=== PATIENT | female | born 1995 | race Caucasian/White ===

== ENCOUNTER 2020-09-27 13:58 | Emergency (ER) | payer BC ==
[~2020-09-27] VITALS: Ht 162 cm; Wt 112.0 kg
[2020-09-27] MEDS ORDERED: IBUPROFEN 800 MG (MOTRIN) TAB PO ONE (14:15)
--- NOTE | 2020-09-27 14:15 | ED General ---
General Chief Complaint: General Problems/Pain Stated Complaint: CHEST PAIN WITH INHALING Nursing Triage Note: PT ABM TO ROOM6 PT CO OF PINCHED NERVE IN NECK, PT STATES FEELS LIKE I HAVE A STICKY LUNG. RATES 11/06 Nursing Sepsis Screen: No Definite Risk Source of Information: Patient Exam Limitations: No Limitations History of Present Illness Date Seen by Provider: September 27, 2020 Time Seen by Provider: 14:13 Initial Comments To ER with reports of sharp pain in the left side of her chest when taking a deep breath. Prior to this she had some pressure in her ears. This began yesterday. She feels like she has a pinched nerve in her neck that radiates down the left arm as well. She read on the Internet that sometimes you have to put a tube in someone's just for situations like this. She decided to come to the emergency room. Timing/Duration: 1-2 Days Severity: Moderate Associated Systoms: No Cough Allergies and Home Medications Allergies Coded Allergies: No Known Drug Allergies (Unverified , 09/27/20) Patient Home Medication List Home Medication List Reviewed: Yes Review of Systems Review of Systems Constitutional: see HPI; No chills, No fever EENTM: see HPI Respiratory: see HPI, cough, short of breath Cardiovascular: no symptoms reported Genitourinary: no symptoms reported Musculoskeletal: no symptoms reported Skin: no symptoms reported Psychiatric/Neurological: No Symptoms Reported Hematologic/Lymphatic: No Symptoms Reported Immunological/Allergic: no symptoms reported Past [place]qgvsx-Wwrdyf Hx Patient Social History Alcohol Use: Occasionally Uses Smoking Status: Former Smoker Recent Infectious Disease Expo: No Recent Hopitalizations: No Seasonal Allergies Seasonal Allergies: No Past Medical History Surgeries: No Respiratory: No Cardiac: No Neurological: No Genitourinary: No Gastrointestinal: No Musculoskeletal: No Endocrine: No HEENT: No Cancer: No Psychosocial: No Integumentary: No Physical Exam Vital Signs Vital Signs - First Documented 09/27/20 14:00 Temp 36.1 Pulse 104 Resp 20 B/P (MAP) 153/83 (106) Pulse Ox 100 Capillary Refill : Less Than 3 Seconds Height, Weight, BMI Height: '" Weight: lbs. oz. kg; 42.00 BMI Method: General Appearance: No Apparent Distress, WD/WN Eyes: Bilateral Eye Normal Inspection, Bilateral Eye PERRL, Bilateral Eye EOMI HEENT: PERRL/EOMI, TMs Normal Neck: Full Range of Motion, Normal Inspection Respiratory: Lungs Clear, Normal Breath Sounds, No Accessory Muscle Use, No Respiratory Distress Cardiovascular: Regular Rate, Rhythm, Normal Peripheral Pulses Gastrointestinal: Normal Bowel Sounds, Non Tender, Soft Extremity: Normal Capillary Refill, Normal Inspection Neurologic/Psychiatric: Alert, Oriented x3 Skin: Normal Color, Warm/Dry Progress/Results/Core Measures Suspected Sepsis Recent Fever Within 48 Hours: No Infection Criteria Present: None New/Unexplained Altered Menta: No Sepsis Screen: No Definite Risk SIRS Temperature: Pulse: 104 Respiratory Rate: 20 Blood Pressure 153 /83 Mean: 106 Results/Orders My Orders Orders - BRIDGETT CISSE APRN Ekg Tracing (09/27/20 14:10) Troponin I (09/27/20 14:10) Fibrin Degradation Products (09/27/20 14:10) Cbc With Automated Diff (09/27/20 14:10) Hcg,Qualitative Serum (09/27/20 14:10) Basic Metabolic Panel (09/27/20 14:10) Chest 1 View, Ap/Pa Only (09/27/20 14:10) Vital Signs/I&O 09/27/20 14:00 Temp 36.1 Pulse 104 Resp 20 B/P (MAP) 153/83 (106) Pulse Ox 100 Capillary Refill : Less Than 3 Seconds Blood Pressure Mean: 106 Departure Impression Primary Impression: Pleuritic chest pain Disposition: 01 HOME, SELF-CARE Condition: Stable Departure-Patient Inst. Decision time for Depature: 14:15 Referrals: NO,LOCAL PHYSICIAN (PCP/Family) Primary Care Physician Patient Instructions: Pleuritic Chest Pain (DC) Add. Discharge Instructions: Tylenol and ibuprofen for pain control. Return to ER for any concerns. Follow- up with your doctor next week. All discharge instructions reviewed with patient and/or family. Voiced understanding. BRIDGETT CISSE APRN September 27, 2020 14:15
--- NOTE | 2020-09-27 14:41 | Diagnostic Imaging Report ---
INDICATION: Left-sided chest pain. FINDINGS: Lungs are clear. No failure, effusion or pneumothorax. Cardiomediastinal and hilar contours unremarkable. IMPRESSION: No acute appearing abnormality. Dictated by: Dictated on workstation # [id number]
[2020-09-27 14:44] LABS: BASOPHILS % (AUTO) 0 % (0-10); EOSINOPHILS # (AUTO) 0.1 10^3/uL (0.0-0.3); EOSINOPHILS % (AUTO) 1 % (0-10); HEMATOCRIT 43 % (35-52); HEMOGLOBIN 14.3 g/dL (11.5-16.0); LYMPHOCYTES # (AUTO) 2.1 10^3/uL (1.0-4.0); LYMPHOCYTES % (AUTO) 25 % (12-44); MEAN CORPUSCULAR HEMOGLOBIN 30 pg (25-34); MEAN CORPUSCULAR HGB CONC 34 g/dL (32-36); MEAN CORPUSCULAR VOLUME 90 fL (80-99); MEAN PLATELET VOLUME 11.6 fL (9.0-12.2); MONOCYTES # (AUTO) 0.4 10^3/uL (0.0-1.0); MONOCYTES % (AUTO) 5 % (0-12); NEUTROPHILS # (AUTO) 5.6 10^3/uL (1.8-7.8); NEUTROPHILS % (AUTO) 68 % (42-75); PLATELET COUNT 292 10^3/uL (130-400); WHITE BLOOD COUNT 8.3 10^3/uL (4.3-11.0)
[2020-09-27 15:01] LABS: CHLORIDE 105 MMOL/L (98-107); SODIUM 139 MMOL/L (135-145)
[2020-09-27 15:03] LABS: GLUCOSE 109 MG/DL (70-105)
[2020-09-27 15:04] LABS: CARBON DIOXIDE 21 MMOL/L (21-32)
[2020-09-27 15:07] LABS: CREATININE SERUM 0.79 MG/DL (0.60-1.30); GFR ESTIMATED > 60
[2020-09-27 15:08] LABS: BUN/CREATININE RATIO 14
[2020-09-27 15:29] VITALS: BP 136/72
== END 2020-09-27 15:31 | disposition home or self-care (01) ==
LOC: ER 14:01
DX: R07.1 Chest pain on breathing (principal); Z87.891 Personal history of nicotine dependence
CPT/HCPCS: 36415; 71045; 80048; 84484; 84703; 85025; 85379; 93005